=== PATIENT | male | born 1975 | race Caucasian/White ===

== ENCOUNTER 2017-06-24 14:46 | Emergency (ER) | payer OTHER ==
[~2017-06-24] VITALS: Ht 177.8 cm; Wt 90.7 kg
== END 2017-06-24 17:17 | disposition home or self-care (01) ==
LOC: ED 14:46
DX: S00.03XA Contusion of scalp, initial encounter (principal); S60.511A Abrasion of right hand, initial encounter; S00.01XA Abrasion of scalp, initial encounter; V49.88XA Car occupant (driver) (passenger) injured in other specified transport accidents, initial encounter; Y93.89 Activity, other specified; Y92.413 State road as the place of occurrence of the external cause; Y99.9 Unspecified external cause status

== ENCOUNTER 2018-02-03 11:58 | Emergency (ER) | payer MEDICAID ==
[~2018-02-03] VITALS: Ht 177.8 cm; Wt 81.6 kg
[2018-02-03] MEDS ORDERED: KEPPRA500 MG PO (12:43)
== END 2018-02-03 13:54 | disposition home or self-care (01) ==
LOC: ED 11:58
DX: G40.909 Epilepsy, unspecified, not intractable, without status epilepticus (principal); Z76.0 Encounter for issue of repeat prescription